=== PATIENT | male | born 1985 | race Caucasian/White ===

== ENCOUNTER 2019-08-09 19:26 | Emergency (ER) | payer OTHER ==
[2019-08-09 19:41] VITALS: BMI 28.7
--- NOTE | 2019-08-09 19:42 | PDOC ---
Rapid Medical Evaluation Chief Complaint: Cold Symptoms Time Seen by Provider: 08/09/19 19:37 Medical Evaluation: 08/09/19 19:38 CC: fever, cold symptoms, cold sore Pt is a 33 y/o male who presents with a fever and flu-like symptoms for about 1 week. + cough and congestion. + bodyaches. Subjective fevers. Brief exam: Non-toxic appearing, no respiratory distress, herpes zoster right upper lip Orders: none To ED for further evaluation Discharge Disposition - Diagnosis Flu-like symptoms - Referrals - Patient Instructions - Post Discharge Activity
[2019-08-09] MEDS ORDERED: IBUPROFEN 600 MG TABLET (FP) PO ONE ×2 (21:22→21:23)
--- NOTE | 2019-08-09 21:41 | PDOC ---
History of Present Illness - General Chief Complaint: Cold Symptoms Stated Complaint: FEVER Time Seen by Provider: 08/09/19 19:37 History Source: Patient - History of Present Illness Initial Comments: 08/09/19 21:38 Chief complaint: Fever Patient is a healthy 33-year-old male who states that sometime on Tuesday or Tuesday he started developing fever, nasal congestion and "allergic" symptoms. Patient states he felt better on Tuesday and then on Tuesday he developed fever which she has worse in the evening. No recent travel. No cough. Patient is eating and drinking and is does not appear acutely ill. GENERAL/CONSTITUTIONAL: No fever, weakness. dizziness HEAD, EYES, EARS, NOSE AND THROAT: No change in vision. No ear pain or discharge. No sore throat. CARDIOVASCULAR: No chest pain RESPIRATORY: No shortness of breath or cough GASTROINTESTINAL: No pain, nausea, vomiting, diarrhea or constipation GENITOURINARY: No dysuria MUSCULOSKELETAL: No neck or back pain SKIN: No rash NEUROLOGIC: No headache, vertigo, loss of consciousness, or loss of sensation. GENERAL: The patient is awake, alert, and fully oriented, in no acute distress. HEAD: Normal with no signs of trauma. EYES: Pupils equal, round and reactive to light, sclera anicteric, conjunctiva clear. ENT: Small fever blister to right upper lip pharynx: no erythema, no exudate, uvula midline NECK: supple CHEST: clear, nontender, rr ABD: soft, nontender BACK: no tenderness or signs of injury EXTREMITIES: Normal range of motion, no edema. NEUROLOGICAL: Normal speech, normal gait. SKIN: Warm, Dry Past History - Past Medical History CVA: No COPD: No CHF: No DVT: No Dementia: No - Immunization History Immunization Up to Date: Yes - Psycho Social/Smoking Cessation Hx Smoking History: Never smoked Hx Alcohol Use: No Drug/Substance Use Hx: No *Physical Exam - Vital Signs Last Vital Signs Temp Pulse Resp BP Pulse Ox 98.1 F 98 H 16 148/68 100 08/09/19 19:38 08/09/19 19:38 08/09/19 19:38 08/09/19 19:38 08/09/19 19:38 Medical Decision Making - Medical Decision Making 08/09/19 21:41 33-year-old male, no significant medical problems with upper respiratory symptoms of nasal congestion and fever that came on Tuesday and Tuesday, went away on Tuesday, came back Tuesday evening Tuesday evening and tonight. Patient appears well. No concerning clinical findings. No cough or travel. Patient will get strep and flu screen and be reassessed. Flu and strep were negative. Patient will continue supportive care and return if any concerning symptoms return instructions provided Discussed issues, findings, results, applicable medications and treatments and follow-up. All these were understood and all questions were answered Discharge - Discharge Information Problems reviewed: Yes Clinical Impression/Diagnosis: Viral upper respiratory illness, Lump of skin Condition: Stable Disposition: HOME - Admission No - Follow up/Referral - Patient Discharge Instructions Patient Printed Discharge Instructions: DI for Viral Upper Respiratory Infection -- Adult Additional Instructions: Drink 2-3 L of water daily Take Tylenol 650 mg every 4 hours or Motrin 600 mg every 6 hours for fever and pain Return to the nearest ER if short of breath, unable to swallow or feeling sicker , or vomiting Followup with your doctor in one to 2 days It is very important to get the bump on your back fully evaluated to make sure it is nothing serious like cancer - Post Discharge Activity Work/Back to School Note: Back to Work
[2019-08-09 22:38] VITALS: BP 128/72; PULSE 69; TEMP 99.4
== END 2019-08-09 22:38 | disposition home or self-care (01) ==
LOC: JERFT 19:26
DX: J06.9 Acute upper respiratory infection, unspecified (principal); B97.89 Other viral agents as the cause of diseases classified elsewhere; B00.1 Herpesviral vesicular dermatitis
CPT/HCPCS: 87070; 87804; 87880; 99281-25